=== PATIENT | male | born 1950 | race African-American/Black ===

== ENCOUNTER 2018-06-22 12:48 | Emergency (ER) | payer MEDICARE, OTHER, SELFPAY ==
[2018-06-22 12:52] VITALS: BMI 33.1
[2018-06-22 13:15] VITALS: BP 161/97; PULSE 79; RESP 16; TEMP 36.6; O2SAT 97
--- NOTE | 2018-06-22 13:26 | ED.WOUNDLAC ---
HPI - Wound/Laceration <NENA Fernandez - Last Filed: 06/22/18 22:02> General Chief Complaint: Wound/Laceration Stated Complaint: laceration to left wrist from glass Time Seen by Provider: 06/22/18 13:26 Source: patient Mode of arrival: ambulatory Limitations: no limitations History of Present Illness HPI narrative: 68-year-old male with history of hypertension and is a nonsmoker here for complaint of laceration to his left wrist. He said earlier today he accidentally brushed against a broken glass and when the pain caused a laceration to his left wrist. He denies any that the glass breaking off into the laceration. The injury is limited to the left wrist area. Bleeding is controlled with direct pressure. He denies any loss of sensation or motor function to his left hand or wrist. He does not know his last tetanus. No other concerns or complaints at this timeframe. Related Data Allergies Allergy/AdvReac Type Severity Reaction Status Date / Time No Known Drug Allergies Allergy Verified 06/22/18 12:52 Review of Systems <NENA Fernandez - Last Filed: 06/22/18 22:02> Constitutional Denies chills, Denies fever(s), Denies lethargy and Denies weakness Eyes Denies change in vision, Denies eye discharge, Denies irritation and Denies loss of vision ENT Ears, Nose, Mouth, and Throat: Denies change in voice, Denies neck pain and Denies sore throat Cardiovascular Denies chest pain, Denies irregular heart rhythm, Denies lightheadedness, Denies palpitations, Denies dyspnea, Denies dyspnea on exertion and Denies orthopnea Respiratory Denies cough, Denies dyspnea, Denies dyspnea on exertion and Denies wheezing Gastrointestinal Gastrointestinal: Denies abdominal pain, Denies change in bowel habits, Denies diarrhea, Denies nausea and Denies vomiting Genitourinary Denies hematuria, Denies flank pain, Denies urinary incontinence and Denies urinary urgency Musculoskeletal Denies neck pain Comments: Left wrist laceration Integumentary/Breasts Denies pruritus, Denies erythema, Denies rash and Denies wounds Neurologic Denies confusion, Denies loss of vision and Denies weakness Psychiatric Denies anxiety, Denies confusion, Denies depression, Denies homicidal ideation and Denies suicidal ideation Endocrine Denies palpitations Hematologic/Lymphatic Denies easy bruising Allergic/Immunologic Denies wheezing PFSH <NENA Fernandez - Last Filed: 06/22/18 22:02> Social History Smoking Status: Never smoker Social History Smoking Status: Never smoker Exam <NENA Fernandez - Last Filed: 06/22/18 22:02> Initial Vital Signs Initial Vital Signs: Vital Signs Temperature 97.9 F 06/22/18 13:15 Pulse Rate 79 06/22/18 13:15 Respiratory Rate 16 06/22/18 13:15 Blood Pressure 161/97 H 06/22/18 13:15 Pulse Oximetry 97 06/22/18 13:15 Const General: cooperative and well developed Nutritional Appearance: well nourished Orientation: alert, awake, oriented x3 and not confused HENMT Mouth: oral mucosae normal and moist mucous membranes Throat: posterior oropharynx normal Eyes Conjunctivae: conjunctivae normal Sclera: sclerae normal Pupils: PERRL EOM: EOM intact bilaterally Cardio Rate: regular rate Rhythm: regular rhythm Heart Sounds: no click, no gallops, no murmurs and no rubs Pulses: normal peripheral pulses Skin General: no rashes or lesions noted, No jaundice and No petechiae Neuro General: alert, oriented x3, gait normal and no focal motor deficits Speech: speech normal Extrem Other: 3 cm linear laceration to the left wrist ventral aspect. No foreign bodies appreciated. Bleeding is controlled. Distal sensation is intact. Distal range of motion is intact. Distal pulses are intact. Distal cap refill less than 2 sec. <Anthony Galicia DO - Last Filed: 06/23/18 07:21> Initial Vital Signs Initial Vital Signs: Vital Signs Temperature 97.9 F 06/22/18 13:15 Pulse Rate 79 06/22/18 13:15 Respiratory Rate 16 06/22/18 13:15 Blood Pressure 161/97 H 06/22/18 13:15 Pulse Oximetry 97 06/22/18 13:15 Procedures <NENA Fernandez - Last Filed: 06/22/18 22:02> Laceration Repair Laceration 1: Site: other ( Wrist) Side (If applicable): left Size (cm): 3 Description: linear Depth: simple, single layer Local Anesthetic: lidocaine 1% Amount of anesthesia used (mL): 2 Pre-repair: wound explored and irrigated extensively Skin layer closed with: nylon Size (cm): 5-0 Number of sutures: 6 Technique: simple, interrupted Course <NENA Fernandez - Last Filed: 06/22/18 22:02> Orders Ordered: Discontinued Medications Diphtheria/Tetanus/Acell Pertussis (Adacel) 0.5 ml IM .ONCE ONE Stop: 06/22/18 13:37 Last Admin: 06/22/18 14:11 Dose: 0.5 ml Vital Signs - 8 hr 06/22/18 14:29 06/22/18 15:35 Pulse Rate 72 74 Respiratory Rate 17 19 Blood Pressure 141/91 H Blood Pressure [Right Arm] 138/85 Pulse Oximetry 99 99 <Anthony Galicia DO - Last Filed: 06/23/18 07:21> Orders Ordered: Discontinued Medications Diphtheria/Tetanus/Acell Pertussis (Adacel) 0.5 ml IM .ONCE ONE Stop: 06/22/18 13:37 Last Admin: 06/22/18 14:11 Dose: 0.5 ml Vital Signs - 8 hr 06/22/18 14:29 06/22/18 15:35 Pulse Rate 72 74 Respiratory Rate 17 19 Blood Pressure 141/91 H Blood Pressure [Right Arm] 138/85 Pulse Oximetry 99 99 MDM - Wound/Laceration <NENA Fernandez - Last Filed: 06/22/18 22:02> Imaging Data left wrist: Radiologist's impression: [address] [address] XRay Report Signed Patient: David Canchola LMR#: [id number] : 1950cct:[id number] Age/Sex: 68 / MDate of Service: 06/22/18 Loc: ED Accession Number: [id number] Procedure: XR wrist LT min 3V Ordering Provider: Los Pastor PROCEDURE: XR WRIST LT MIN 3V INDICATIONS: laceration left wrist cut on glass TECHNIQUE: 3 views of the wrist were acquired. COMPARISON: None. FINDINGS: There is a pronator quadratus size suggesting that there is probable hemorrhage ventral to the distal radius. There is a tiny radiopaque density along the ventral aspects near the triangular fibrocartilage, which may represent a tiny radiopaque foreign body. No fractures or dislocations. IMPRESSION: Question tiny radiopaque foreign body along the ventral aspect near the triangular fibrocartilage. Dictated by: Lawrence Walters M.D. on 06/22/2018 at 14:03 Approved by: Lawrence Walters M.D. on 06/22/2018 at 14:21 MDM Narrative Medical decision making narrative: x-ray the left wrist was obtained and shows radiopaque small 2-3 mm object to the ulnar aspect of the left wrist. Wound was explored with no foreign body appreciated. Radiopaque object is not close to the wound margins believe that this is not acute foreign body or osseous body. Laceration was closed with 6 5-0 nylon simple interrupted sutures with good wound closure. Patient tolerated well no complications. Sutures out in 7-10 days. Wound dressed with bacitracin and a dressing. Tetanus was updated in the emergency room today. [id number]-[id number] Tylenol or Motrin as needed for any discomfort. For any worsening symptoms return to the emergency room. Discharge Plan Departure Patient Disposition: Home Clinical Impression: Laceration of left wrist Qualifiers: Encounter type: initial encounter Qualified Code(s): S61.512A - Laceration without foreign body of left wrist, initial encounter Discharge Date/Time: 06/22/18 15:38 Interventions: ED Discharge Assessment Last Done: 06/22/18 15:35 Instructions: DI for Laceration Repair Activity Restrictions/Additional Instructions: laceration to left wrist was closed with 6 sutures. Sutures to be removed in 7-10 days. Keep wound area clean and dry. Dress wound daily with bacitracin and a dressing until healed. Use [id number] Tylenol or Motrin as needed for any discomfort. Follow up with primary care provider. For any worsening symptoms return to the emergency room or signs of infection. Referrals: [facility] [Provider Group] <Anthony Galicia DO - Last Filed: 06/23/18 07:21> Cosign ED Attending Franck Attestation: I was immediately available in the department for consultation. Documentation has been reviewed. I agree with assessment and plan.
--- NOTE | 2018-06-22 13:31 | ED_ITS ---
HPI - Wound/Laceration <NENA Fernandez - Last Filed: 06/22/18 22:02> General Chief Complaint: Wound/Laceration Stated Complaint: laceration to left wrist from glass Time Seen by Provider: 06/22/18 13:26 Source: patient Mode of arrival: ambulatory Limitations: no limitations History of Present Illness HPI narrative: 68-year-old male with history of hypertension and is a nonsmoker here for complaint of laceration to his left wrist. He said earlier today he accidentally brushed against a broken glass and when the pain caused a laceration to his left wrist. He denies any that the glass breaking off into the laceration. The injury is limited to the left wrist area. Bleeding is controlled with direct pressure. He denies any loss of sensation or motor function to his left hand or wrist. He does not know his last tetanus. No other concerns or complaints at this timeframe. Related Data Allergies Allergy/AdvReac Type Severity Reaction Status Date / Time No Known Drug Allergies Allergy Verified 06/22/18 12:52 Review of Systems <NENA Fernandez - Last Filed: 06/22/18 22:02> Constitutional Denies chills, Denies fever(s), Denies lethargy and Denies weakness Eyes Denies change in vision, Denies eye discharge, Denies irritation and Denies loss of vision ENT Ears, Nose, Mouth, and Throat: Denies change in voice, Denies neck pain and Denies sore throat Cardiovascular Denies chest pain, Denies irregular heart rhythm, Denies lightheadedness, Denies palpitations, Denies dyspnea, Denies dyspnea on exertion and Denies orthopnea Respiratory Denies cough, Denies dyspnea, Denies dyspnea on exertion and Denies wheezing Gastrointestinal Gastrointestinal: Denies abdominal pain, Denies change in bowel habits, Denies diarrhea, Denies nausea and Denies vomiting Genitourinary Denies hematuria, Denies flank pain, Denies urinary incontinence and Denies urinary urgency Musculoskeletal Denies neck pain Comments: Left wrist laceration Integumentary/Breasts Denies pruritus, Denies erythema, Denies rash and Denies wounds Neurologic Denies confusion, Denies loss of vision and Denies weakness Psychiatric Denies anxiety, Denies confusion, Denies depression, Denies homicidal ideation and Denies suicidal ideation Endocrine Denies palpitations Hematologic/Lymphatic Denies easy bruising Allergic/Immunologic Denies wheezing PFSH <NENA Fernandez - Last Filed: 06/22/18 22:02> Social History Smoking Status: Never smoker Social History Smoking Status: Never smoker Exam <NENA Fernandez - Last Filed: 06/22/18 22:02> Initial Vital Signs Initial Vital Signs: Vital Signs Temperature 97.9 F 06/22/18 13:15 Pulse Rate 79 06/22/18 13:15 Respiratory Rate 16 06/22/18 13:15 Blood Pressure 161/97 H 06/22/18 13:15 Pulse Oximetry 97 06/22/18 13:15 Const General: cooperative and well developed Nutritional Appearance: well nourished Orientation: alert, awake, oriented x3 and not confused HENMT Mouth: oral mucosae normal and moist mucous membranes Throat: posterior oropharynx normal Eyes Conjunctivae: conjunctivae normal Sclera: sclerae normal Pupils: PERRL EOM: EOM intact bilaterally Cardio Rate: regular rate Rhythm: regular rhythm Heart Sounds: no click, no gallops, no murmurs and no rubs Pulses: normal peripheral pulses Skin General: no rashes or lesions noted, No jaundice and No petechiae Neuro General: alert, oriented x3, gait normal and no focal motor deficits Speech: speech normal Extrem Other: 3 cm linear laceration to the left wrist ventral aspect. No foreign bodies appreciated. Bleeding is controlled. Distal sensation is intact. Distal range of motion is intact. Distal pulses are intact. Distal cap refill less than 2 sec. <Anthony Galicia DO - Last Filed: 06/23/18 07:21> Initial Vital Signs Initial Vital Signs: Vital Signs Temperature 97.9 F 06/22/18 13:15 Pulse Rate 79 06/22/18 13:15 Respiratory Rate 16 06/22/18 13:15 Blood Pressure 161/97 H 06/22/18 13:15 Pulse Oximetry 97 06/22/18 13:15 Procedures <NENA Fernandez - Last Filed: 06/22/18 22:02> Laceration Repair Laceration 1: Site: other ( Wrist) Side (If applicable): left Size (cm): 3 Description: linear Depth: simple, single layer Local Anesthetic: lidocaine 1% Amount of anesthesia used (mL): 2 Pre-repair: wound explored and irrigated extensively Skin layer closed with: nylon Size (cm): 5-0 Number of sutures: 6 Technique: simple, interrupted Course <NENA Fernandez - Last Filed: 06/22/18 22:02> Orders Ordered: Discontinued Medications Diphtheria/Tetanus/Acell Pertussis (Adacel) 0.5 ml IM .ONCE ONE Stop: 06/22/18 13:37 Last Admin: 06/22/18 14:11 Dose: 0.5 ml Vital Signs - 8 hr 06/22/18 14:29 06/22/18 15:35 Pulse Rate 72 74 Respiratory Rate 17 19 Blood Pressure 141/91 H Blood Pressure [Right Arm] 138/85 Pulse Oximetry 99 99 <Anthony Galicia DO - Last Filed: 06/23/18 07:21> Orders Ordered: Discontinued Medications Diphtheria/Tetanus/Acell Pertussis (Adacel) 0.5 ml IM .ONCE ONE Stop: 06/22/18 13:37 Last Admin: 06/22/18 14:11 Dose: 0.5 ml Vital Signs - 8 hr 06/22/18 14:29 06/22/18 15:35 Pulse Rate 72 74 Respiratory Rate 17 19 Blood Pressure 141/91 H Blood Pressure [Right Arm] 138/85 Pulse Oximetry 99 99 MDM - Wound/Laceration <NENA Fernandez - Last Filed: 06/22/18 22:02> Imaging Data left wrist: Radiologist's impression: [address] [address] XRay Report Signed Patient: David Canchola LMR#: [id number] : [id number]:[id number] Age/Sex: 68 / MDate of Service: 06/22/18 Loc: ED Accession Number: [id number] Procedure: XR wrist LT min 3V Ordering Provider: Los Pastor PROCEDURE: XR WRIST LT MIN 3V INDICATIONS: laceration left wrist cut on glass TECHNIQUE: 3 views of the wrist were acquired. COMPARISON: None. FINDINGS: There is a pronator quadratus size suggesting that there is probable hemorrhage ventral to the distal radius. There is a tiny radiopaque density along the ventral aspects near the triangular fibrocartilage, which may represent a tiny radiopaque foreign body. No fractures or dislocations. IMPRESSION: Question tiny radiopaque foreign body along the ventral aspect near the triangular fibrocartilage. Dictated by: Lawrence Walters M.D. on 06/22/2018 at 14:03 Approved by: Lawrence Walters M.D. on 06/22/2018 at 14:21 MDM Narrative Medical decision making narrative: x-ray the left wrist was obtained and shows radiopaque small 2-3 mm object to the ulnar aspect of the left wrist. Wound was explored with no foreign body appreciated. Radiopaque object is not close to the wound margins believe that this is not acute foreign body or osseous body. Laceration was closed with 6 5-0 nylon simple interrupted sutures with good wound closure. Patient tolerated well no complications. Sutures out in 7- 10 days. Wound dressed with bacitracin and a dressing. Tetanus was updated in the emergency room today. [id number]-[id number] Tylenol or Motrin as needed for any discomfort. For any worsening symptoms return to the emergency room. Discharge Plan Departure Patient Disposition: Home Clinical Impression: Laceration of left wrist Qualifiers: Encounter type: initial encounter Qualified Code(s): S61.512A - Laceration without foreign body of left wrist, initial encounter Discharge Date/Time: 06/22/18 15:38 Interventions: ED Discharge Assessment Last Done: 06/22/18 15:35 Instructions: DI for Laceration Repair Activity Restrictions/Additional Instructions: laceration to left wrist was closed with 6 sutures. Sutures to be removed in 7-10 days. Keep wound area clean and dry. Dress wound daily with bacitracin and a dressing until healed. Use [id number] Tylenol or Motrin as needed for any discomfort. Follow up with primary care provider. For any worsening symptoms return to the emergency room or signs of infection. Referrals: [facility] [Provider Group] <Anthony Galicia DO - Last Filed: 06/23/18 07:21> Cosign ED Attending Franck Attestation: I was immediately available in the department for consultation. Documentation has been reviewed. I agree with assessment and plan.
--- NOTE | 2018-06-22 13:36 | DI.RAD.S_ITS ---
PROCEDURE: XR WRIST LT MIN 3V INDICATIONS: laceration left wrist cut on glass TECHNIQUE: 3 views of the wrist were acquired. COMPARISON: None. FINDINGS: There is a pronator quadratus size suggesting that there is probable hemorrhage ventral to the distal radius. There is a tiny radiopaque density along the ventral aspects near the triangular fibrocartilage, which may represent a tiny radiopaque foreign body. No fractures or dislocations. IMPRESSION: Question tiny radiopaque foreign body along the ventral aspect near the triangular fibrocartilage. Dictated by: Lawrence Walters M.D. on 06/22/2018 at 14:03 Approved by: Lawrence Walters M.D. on 06/22/2018 at 14:21
[2018-06-22] MEDS: TET,DIPH,PERTUSS(ACELL),VAC/PF 0.5 ML SYRINGE IM (14:11)
[2018-06-22 14:29] VITALS: BP 138/85; PULSE 72; RESP 17; O2SAT 99
[2018-06-22 15:35] VITALS: BP 141/91; PULSE 74; RESP 19; O2SAT 99
--- NOTE | 2018-06-22 15:37 | PC.NURSE ---
Dressed patient's wound with bacitracin and gauze. Patient states he wounded himself accidentally with piece of broken glass.
== END 2018-06-22 15:38 | disposition home or self-care (01) ==
PROVIDERS: Emergency Provider Nurse Practitioner Family
DX: S61.512A Laceration without foreign body of left wrist, initial encounter (principal); W25.XXXA Contact with sharp glass, initial encounter
CPT/HCPCS: 12002; 73110; 90471; 99283; 90715

== ENCOUNTER → 2020-07-13 08:05 | Outpatient (CLI) | payer MEDICARE, OTHER, SELFPAY ==
[2020-07-13] MEDS: COVID-19 VACC, Ad26(JANSSEN)/PF 0.5 ML IM (08:13)
== END ==
PROVIDERS: Visit Provider Internal Medicine
DX: Z23 Encounter for immunization (principal)
CPT/HCPCS: 0031A; 91303